=== PATIENT | female | born 1995 | race African-American/Black ===

== ENCOUNTER 2017-03-18 17:18 | Emergency (ER) | payer SELFPAY ==
[~2017-03-18] VITALS: Ht 167.6 cm; Wt 97.5 kg
[~2017-03-18 17:18] MED LIST: BENT20TA PO; ZOFR4TAB3 SL
[2017-03-18 17:20] VITALS: BP 129/60; PULSE 114; RESP 24; TEMP 100.2; O2SAT 98
[2017-03-18 18:00] VITALS: BP 114/65; PULSE 116; RESP 20; TEMP 99.7; O2SAT 100
[2017-03-18] MEDS ORDERED: SODIUM CHLOR 0.9% 1000 ML INJ 1,000 ML IV SCH (18:04)
[2017-03-18] MEDS ORDERED: MORPHINE SULFATE 4 MG/ML INJ IV PUSH ONE (18:15)
[2017-03-18] MEDS ORDERED: SODIUM CHLORIDE 0.9% FLUSH 10 ML FLUSH IV FLUSH PRN (18:15)
[2017-03-18] MEDS ORDERED: ONDANSETRON HCL 4 MG/2 ML VIAL IVP ONE (18:15)
--- NOTE | 2017-03-18 18:17 | PD ---
HPI . Vomiting Chief Complaint: Abdominal Pain Time Seen by Provider: 17:54 Travel History International Travel<30 days: No Contact w/Intl Traveler<30days: No Traveled to known affect area: No History of Present Illness HPI 22-year-old female presents complaining of vomiting and abdominal pain. Vomiting began this morning after waking up at 6 am and has continued throughout the day. Abdominal pain started this afternoon. Located in the middle of her abdomen all the way up to her chest and in the right lower quadrant. Reports that the pain is constant and worsening. Describes it as "someone is pinching me from the inside". She has had one bowel movement today which was hard and then liquid. Pain is worse with any movement. Better with sitting still. She also reports headache which she describes as "pounding", nausea, and feeling "hot and cold". 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 SCHOOL) PNEUMOCCOCAL Vaccine (Year): 2 ?: Not LMP: 03/02/17 : 0 Para: 0 Past Surgical History Other Surgery: No Social History Alcohol Use: No Tobacco Use: No Substance Use: No Allergies-Medications (Allergen,Severity, Reaction): Coded Allergies: No Known Allergies (Verified , 03/18/17) Reported Meds & Prescriptions Reported Meds & Active Scripts Active No Active Prescriptions or Reported Medications Review of Systems Except as stated in HPI: all other systems reviewed are Neg General / Constitutional: Positive: Chills HENT: Positive: Headaches Gastrointestinal: Positive: Nausea, Vomiting, Abdominal Pain, Changes in Bowel Habits, No: Hematemesis Genitourinary: No: Vaginal Bleeding Physical Exam Narrative GENERAL: awake and alert. Appears to be in distress, writhing around in the bed. SKIN: Warm and dry. HEAD: Atraumatic. Normocephalic. EYES: Pupils equal and round. ENT: No nasal bleeding or discharge. Mucous membranes pink and moist. NECK: Trachea midline. CARDIOVASCULAR: Regular rate and rhythm. RESPIRATORY: No accessory muscle use. GASTROINTESTINAL: Soft, tender to palpation and elicits urge to vomit. MUSCULOSKELETAL: No obvious deformities. No edema. NEUROLOGICAL: Awake and alert. No obvious cranial nerve deficits. Motor grossly within normal limits. Normal speech. PSYCHIATRIC: Appropriate mood and affect; insight and judgment normal. Data Data Last Documented VS Vital Signs Date Time Temp Pulse Resp B/P Pulse Ox O2 Delivery O2 Flow Rate FiO2 03/18/17 18:00 99.7 116 20 114/65 100 Room Air Orders Complete Blood Count With Diff (03/18/17 17:42) Comprehensive Metabolic Panel (03/18/17 17:42) Urinalysis - C+S If Indicated (03/18/17 17:42) Ed Urine Pregnancytest Poc (03/18/17 17:42) Lipase (03/18/17 17:42) Ct Abd/Pel W Iv Contrast(Rout) (03/18/17 18:04) Iv Access Insert/Monitor (03/18/17 18:04) Morphine Inj (Morphine Inj) (03/18/17 18:15) Ondansetron Inj (Zofran Inj) (03/18/17 18:15) Sodium Chlor 0.9% 1000 Ml Inj (Ns 1000 M (03/18/17 18:04) Sodium Chloride 0.9% Flush (Ns Flush) (03/18/17 18:15) Acetaminophen (Tylenol) (03/18/17 18:30) Iohexol 350 Inj (Omnipaque 350 Inj) (03/18/17 19:11) Sodium Chlor 0.9% 1000 Ml Inj (Ns 1000 M (03/18/17 20:00) Acetaminophen (Tylenol) (03/18/17 20:15) Labs Laboratory Tests Test 03/18/17 03/18/17 17:45 18:20 Urine Color YELLOW Urine Turbidity CLEAR Urine pH 7.5 Urine Specific [place] 1.023 Urine Protein TRACE mg/dL Urine Glucose (UA) NEG mg/dL Urine Ketones NEG mg/dL Urine Occult Blood NEG Urine Nitrite NEG Urine Bilirubin NEG Urine Urobilinogen 2.0 MG/DL Urine Leukocyte Esterase NEG Urine RBC 1 /hpf Urine WBC 5 /hpf Urine Squamous Epithelial 7 /hpf Cells Urine Bacteria FEW /hpf Urine Mucus FEW /lpf Microscopic Urinalysis Comment CULT NOT INDICATED White Blood Count 9.0 TH/MM3 Red Blood Count 5.51 MIL/MM3 Hemoglobin 14.3 GM/DL Hematocrit 45.0 % Mean Corpuscular Volume 81.8 FL Mean Corpuscular Hemoglobin 25.9 PG Mean Corpuscular Hemoglobin 31.7 % Concent Red Cell Distribution Width 14.1 % Platelet Count 317 TH/MM3 Mean Platelet Volume 8.2 FL Neutrophils (%) (Auto) 81.4 % Lymphocytes (%) (Auto) 9.3 % Monocytes (%) (Auto) 8.0 % Eosinophils (%) (Auto) 1.2 % Basophils (%) (Auto) 0.1 % Neutrophils # (Auto) 7.3 TH/MM3 Lymphocytes # (Auto) 0.8 TH/MM3 Monocytes # (Auto) 0.7 TH/MM3 Eosinophils # (Auto) 0.1 TH/MM3 Basophils # (Auto) 0.0 TH/MM3 CBC Comment DIFF FINAL Differential Comment Sodium Level 137 MEQ/L Potassium Level 4.0 MEQ/L Chloride Level 105 MEQ/L Carbon Dioxide Level 25.3 MEQ/L Anion Gap 7 MEQ/L Blood Urea Nitrogen 9 MG/DL Creatinine 0.74 MG/DL Estimat Glomerular Filtration 118 ML/MIN Rate Random Glucose 76 MG/DL Calcium Level 8.8 MG/DL Total Bilirubin 1.2 MG/DL Aspartate Amino Transf 30 U/L (AST/SGOT) Alanine Aminotransferase 27 U/L (ALT/SGPT) Alkaline Phosphatase 64 U/L Total Protein 8.2 GM/DL Albumin 4.0 GM/DL Lipase 143 U/L MDM Medical Decision Making Medical Screen Exam Complete: Yes Emergency Medical Condition: Yes Differential Diagnosis differential includes gastroenteritis, appendicitis, nephrolithiasis, ruptured ovarian cyst. Narrative Course Patient presented with the acute onset of nausea, vomiting and abdominal pain. She did have some tenderness to palpation on the right side. The patient was writhing so the likelihood of appendicitis is pretty low. CBC & BMP Diagram 03/18/17 18:20 UA is negative. Last Impressions Abdomen/Pelvis CT 03/18/171803 Signed Impressions: Service Date/Time: , March 18, 2017 19:10 - CONCLUSION: Negative CT abdomen/pelvis with contrast. Possible bilateral ovarian cysts. Delmer Jimenez MD This patient most likely has a viral illness. She will be discharged home. She 'll be given a prescription for Zofran. Diagnosis Primary Impression: Abdominal pain Qualified Code: R10.84 - Generalized abdominal pain Additional Impression: Vomiting Qualified Code: R11.2 - Non-intractable vomiting with nausea, unspecified vomiting type Patient Instructions: Abdominal Pain (ED), Acute Nausea and Vomiting (DC), General Instructions Med/Other Pt SpecificInfo: Prescription(s) given Scripts Ondansetron (Zofran)4 Mg Tab4 Mg PO Q6HR PRN (NAUSEA OR VOMITING) #6 TAB Ref 0 Prov:Katelin Galarza MD 03/18/17 Disposition: 01 DISCHARGE HOME Condition: Stable Katelin Galarza MD Mar 18, 2017 18:17
[2017-03-18] MEDS ORDERED: ACETAMINOPHEN 325 MG TAB PO ONE ×2 (18:30→20:15)
[2017-03-18 19:00] VITALS: BP 105/57; PULSE 68; RESP 14; TEMP 102.5; O2SAT 97
[2017-03-18 19:01] LABS: AUTOMATED NEUTROPHIL # 7.3 TH/MM3 (1.8-7.7); BASOPHIL % 0.1 % (0.0-2.0); EOSINOPHIL # 0.1 TH/MM3 (0-0.4); EOSINOPHIL % 1.2 % (0.0-4.0); HEMO FLAGS DIFF FINAL; LYMPH % 9.3 % (9.0-44.0); LYMPHOCYTE # 0.8 TH/MM3 (1.0-4.8); MEAN CELL VOLUME 81.8 FL (80.0-100.0); MEAN CORPUSCULAR HEMOGLOBIN 25.9 PG (27.0-34.0); MEAN CORPUSCULAR HGB CONC 31.7 % (32.0-36.0); NEUT % 81.4 % (16.0-70.0); PLATELET COUNT 317 TH/MM3 (150-450); RED BLOOD COUNT 5.51 MIL/MM3 (4.00-5.30); RED CELL DISTRIBUTION WIDTH 14.1 % (11.6-17.2)
[2017-03-18 19:02] LABS: BACTERIA, URINE FEW /hpf; BLOOD, URINE NEG (NEG); COMMENT (UR) CULT NOT INDICATED; CULTURE IF INDICATED CULT NOT INDICATED; GLUCOSE,URINE NEG (NEG); KETONE, URINE NEG (NEG); MUCUS URINE FEW /lpf (OCC); NITRITE,URINE NEG (NEG); PH, URINE 7.5 (5.0-8.5); SQUAMOUS EPITHELIAL CELL URINE 7 /hpf (0-5); URINE COLOR YELLOW (YELLW/STRAW)
[2017-03-18] MEDS ORDERED: IOHEXOL 350 MG/ML 10 ML VIAL (for RAD DIAG) IV ONE (19:11)
[2017-03-18 19:17] LABS: ALT (GPT) 27 U/L (10-53)
[2017-03-18 19:19] LABS: ALKALINE PHOSPHATASE 64 U/L (45-117); TOTAL BILIRUBIN ADULT 1.2 MG/DL (0.2-1.0)
[2017-03-18 19:24] LABS: ANION GAP 7 MEQ/L (5-15); AST (GOT) 30 U/L (15-37); BICARBONATE 25.3 MEQ/L (21.0-32.0); BLOOD UREA NITROGEN 9 MG/DL (7-18); CHLORIDE 105 MEQ/L (98-107); GLOMERULAR FILTRATION RATE 118 ML/MIN (>89); SODIUM (NA) 137 MEQ/L (136-145)
--- NOTE | 2017-03-18 19:59 | RADRPT ---
EXAM DATE/TIME: 03/18/2017 19:10 [facility] COMPARISON: No previous studies available for comparison. INDICATIONS : Diffuse abdomen pain with vomiting. IV CONTRAST: 95 cc Omnipaque 350 (iohexol) IV ORAL CONTRAST: No oral contrast ingested. RADIATION DOSE: 19.74 CTDIvol (mGy) MEDICAL HISTORY : Seizures. Asthma. SURGICAL HISTORY : None. ENCOUNTER: Initial ACUITY: 1 day PAIN SCALE: 2/10 LOCATION: Right lower quadrant TECHNIQUE: Volumetric scanning of the abdomen and pelvis was performed. Using automated exposure control and ad justment of the mA and/or kV according to patient size, radiation dose was kept as low as reasonably achievable to obtain optimal diagnostic quality images. DICOM format image data is available electro nically for review and comparison. FINDINGS: LOWER LUNGS: The visualized lower lungs are clear. LIVER: Homogeneous density without lesion. There is no dilation of the biliary tree. No calcified gallston es. SPLEEN: Normal size without lesion. PANCREAS: Within normal limits. KIDNEYS: Normal in size and shape. There is no mass, stone or hydronephrosis. ADRENAL GLANDS: Within normal limits. VASCULAR: There is no aortic aneurysm. BOWEL/MESENTERY: The stomach, small bowel, and colon demonstrate no acute abnormality. There is no free intraperitone al air or fluid. ABDOMINAL WALL: Within normal limits. RETROPERITONEUM: There is no lymphadenopathy. BLADDER: No wall thickening or mass. REPRODUCTIVE: No free fluid in the pelvis. The adnexal regions are mildly hypodense suggesting possible ovarian cy sts. Homogeneous enhancement in the uterus. INGUINAL: There is no lymphadenopathy or hernia. MUSCULOSKELETAL: Within normal limits for patient age. CONCLUSION: Negative CT abdomen/pelvis with contrast. Possible bilateral ovarian cysts. Delmer Jimenez MD on March 18, 2017 at 19:55 Board Certified Radiologist. This report was verified electronically.
[2017-03-18] MEDS ORDERED: SODIUM CHLOR 0.9% 1000 ML INJ 1,000 ML IV ONE (20:00)
[2017-03-18] MEDS ORDERED: ZOFR4TAB PO (20:42)
== END 2017-03-18 21:11 | disposition home or self-care (01) ==
LOC: NEPD 17:18
DX: R10.84 Generalized abdominal pain (principal); R11.2 Nausea with vomiting, unspecified; R51 Headache
CPT/HCPCS: 74177; 80053; 81001; 83690; 84703; 85025; 96374; 96375; 99285; J2270; J2405; J7030; Q9967

== ENCOUNTER 2017-03-31 13:29 | Emergency (ER) | payer SELFPAY ==
[~2017-03-31] VITALS: Ht 167.6 cm; Wt 109.0 kg
[~2017-03-31 13:29] MED LIST changes: -BENT20TA PO; +ZOFR4TAB PO; -ZOFR4TAB3 SL
[2017-03-31 13:31] VITALS: BP 123/73; PULSE 132; RESP 20; TEMP 101; O2SAT 99
[2017-03-31 13:48] VITALS: PULSE 128
--- NOTE | 2017-03-31 14:11 | PD ---
HPI Chief Complaint: Cold / Flu Symptoms Time Seen by Provider: 14:11 Travel History International Travel<30 days: No Contact w/Intl Traveler<30days: No Traveled to known affect area: No History of Present Illness HPI 22 YO F presents to the ED for evaluation of less than 24-hour history of fevers , sore throat, vomiting, nonproductive cough, malaise. Symptoms onset gradually this morning. Endorses difficulty swallowing her own secretions secondary to pain. Denies breathing difficulties, headache, dizziness, ear pain , sinus congestion, rhinorrhea, abdominal pain, dysuria. Patient treated with Tylenol at 9:45 AM. She denies sick contacts. She did not receive this years flu vaccination. NKDA. 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 SCHOOL) Tetanus Vaccination: > 5 Years PNEUMOCCOCAL Vaccine (Year): 2 ?: Not LMP: 02/25/17 : 0 Para: 0 Past Surgical History Surgical History: No Previous Surgery Other Surgery: No Social History Alcohol Use: No Tobacco Use: No Substance Use: No Allergies-Medications (Allergen,Severity, Reaction): Coded Allergies: No Known Allergies (Verified , 03/31/17) Reported Meds & Prescriptions Reported Meds & Active Scripts Active Magic Mouthwash Adult Liq (Multi-Ingredient Mouthwash/Gargle) 120 Ml Susp 10 Ml SWISH-SPIT ACHS Each 5mL contains: Nystatin 200,000units, Diphenhydramine 4.25mg, Viscous Lidocaine 10mg, Borges syrup 0.8 mL Penicillin V Potassium 500 Mg Tab 500 Mg PO BID 10 Days Review of Systems Except as stated in HPI: all other systems reviewed are Neg Physical Exam Narrative GENERAL: Well-nourished, well-developed ill-appearing black female in no acute distress. Tremulous. SKIN: Warm and dry. HEAD: Normocephalic. Atraumatic. EYES: No scleral icterus. No injection or drainage. PERRLA. EOMI. ENT: Pearly gordon tympanic membranes bilaterally. Nasal mucosa is moist. Oropharynx with 2+ tonsils bilaterally. Mild erythema. No visible exudate. Uvula midline. Airway patent. NECK: Supple, trachea midline. No JVD or lymphadenopathy. CARDIOVASCULAR: Regular rate and rhythm without murmurs, gallops, or rubs. RESPIRATORY: Breath sounds clear and equal bilaterally. No accessory muscle use. GASTROINTESTINAL: Abdomen soft, non-tender, nondistended. + Bowel sounds MUSCULOSKELETAL: No cyanosis, or edema. Patient's ambulatory with a normal gait. BACK: Nontender without obvious deformity. No CVA tenderness. Data Data Last Documented VS Vital Signs Date Time Temp Pulse Resp B/P Pulse Ox O2 Delivery O2 Flow Rate FiO2 03/31/17 16:17 100.1 126 03/31/17 15:33 133/78 98 Room Air 03/31/17 13:31 20 Orders Group A Rapid Strep Screen (03/31/17 14:17) Iv Access Insert/Monitor (03/31/17 14:17) Methylprednisolone So Succ Inj (Solumedr (03/31/17 14:30) Sodium Chloride 0.9% Flush (Ns Flush) (03/31/17 14:30) Sodium Chlor 0.9% 1000 Ml Inj (Ns 1000 M (03/31/17 14:30) Acetaminophen (Tylenol) (03/31/17 14:30) Influenzae A/B Antigen (03/31/17 14:17) Penicillin V Potassium (Veetids) (03/31/17 15:30) MDM Medical Decision Making Medical Screen Exam Complete: Yes Emergency Medical Condition: Yes Differential Diagnosis Pharyngitis versus strep pharyngitis versus influenza versus viral syndrome versus other Narrative Course 22-year-old female presents to the ED for the less than 24-hour history of sore throat, difficulty swallowing her secretions secondary to pain, fever, malaise, single episode of vomiting. Symptoms onset gradually since waking today. She denies sick contacts. On arrival the patient is tachycardic and febrile, ill- appearing. ENT exam reveals 2+ tonsils bilaterally with moderate erythema. Uvula midline. Airway patent. Chest clear to auscultation bilaterally. IV was established. Patient was administered Tylenol, 1 L normal saline bolus, IV methylprednisone. Rapid strep swab positive. This is acute streptococcal pharyngitis. Patient was prescribed penicillin VK 500 mg twice a day 10 days and Magic mouthwash. First dose antibiotic administered in the ED. On recheck the patient's temp is improved despite being under multiple blankets, grandmother arrives to care for her. The patient is instructed to rest, hydrate , take all medication as prescribed, limit exposure to vulnerable populations, return to the ED for worsening symptoms. She was provided with a note for work. She indicated understanding of instructions and is agreeable to the care plan. She is stable and discharged home. Diagnosis Primary Impression: Acute streptococcal pharyngitis Referrals: Primary Care Physician Patient Instructions: General Instructions, Strep Throat (ED) Departure Forms: Tests/Procedures, Work Release Enter return to work date: Apr 05, 2017 Additional Instructions: Rest, hydrate. Push fluids such as sports drinks, Pedialyte, popsicles, clear broth. Take antibiotics as prescribed, even if your symptoms resolved. Alternating Motrin and Tylenol every 4-6 hours as needed for continued fever. Increase handwashing frequently to avoid the spread to other family members and the community. Disinfect commonly touched surfaces such as light switches, microwaves, remote controls. Replace toothbrush at the end of this illness. Follow-up with the primary care provider this week. Return to the ED for any urgent or emergent medical condition. Med/Other Pt SpecificInfo: Prescription(s) given Scripts [id number] Liq (Magic Mouthwash Adult Liq)120 Ml Susp10 Ml SWISH-SPIT ACHS #120 ML Ref 0 Each 5mL contains: Nystatin 200,000units, Diphenhydramine 4.25mg, Viscous Lidocaine 10mg, Borges syrup 0.8 mL Prov:Jasbir Lakhani MD 03/31/17 Penicillin V Potassium 500 Mg [id number] Mg PO BID 10 Days Ref 0 Prov:Jasbir Lakhani MD 03/31/17 Disposition: 01 DISCHARGE HOME Condition: Stable Queta Wisdom Mar 31, 2017 14:11
[2017-03-31] MEDS ORDERED: methylPREDNISolone SOD SUCC 125 MG/2 ML VIAL IV ONE (14:30)
[2017-03-31] MEDS ORDERED: SODIUM CHLOR 0.9% 1000 ML INJ 1,000 ML IV ONE (14:30)
[2017-03-31] MEDS ORDERED: ACETAMINOPHEN 325 MG TAB PO ONE (14:30)
[2017-03-31] MEDS ORDERED: SODIUM CHLORIDE 0.9% FLUSH 10 ML FLUSH IVF PRN (14:30)
[2017-03-31] MEDS ORDERED: PENI500T PO (15:23)
[2017-03-31] MEDS ORDERED: MAGICADU2 SWISH-SPIT (15:28)
[2017-03-31] MEDS ORDERED: PENICILLIN V POTASSIUM 500 MG TAB PO ONE (15:30)
[2017-03-31 15:33] VITALS: BP 133/78; PULSE 124; O2SAT 98
[2017-03-31 16:17] VITALS: PULSE 126; TEMP 100.1
[2017-03-31 16:28] VITALS: TEMP 100.1
== END 2017-03-31 16:37 | disposition home or self-care (01) ==
LOC: NEPD 13:29
DX: J02.0 Streptococcal pharyngitis (principal); R53.81 Other malaise; F90.9 Attention-deficit hyperactivity disorder, unspecified type; J45.909 Unspecified asthma, uncomplicated; R56.9 Unspecified convulsions; Z79.899 Other long term (current) drug therapy
CPT/HCPCS: 87804; 87880; 96361; 96374; 99284; J2930; J7030

== ENCOUNTER 2017-05-27 19:45 | Emergency (ER) | payer SELFPAY ==
[~2017-05-27] VITALS: Ht 167.6 cm; Wt 110.0 kg
[~2017-05-27 19:45] MED LIST changes: +MAGICADU2 SWISH-SPIT; +PENI500T PO; -ZOFR4TAB PO
[2017-05-27 19:46] VITALS: BP 128/76; PULSE 75; RESP 18; TEMP 98.9; O2SAT 100
[2017-05-27] MEDS ORDERED: IOHEXOL 350 MG/ML 10 ML VIAL (for RAD DIAG) IVCONTRAST ONE (19:46)
[2017-05-27] MEDS ORDERED: SODIUM CHLOR 0.9% 1000 ML INJ 1,000 ML IV SCH (20:26)
[2017-05-27] MEDS ORDERED: SODIUM CHLORIDE 0.9% FLUSH 10 ML FLUSH IV FLUSH PRN (20:30)
[2017-05-27] MEDS ORDERED: ONDANSETRON HCL 4 MG/2 ML VIAL IVP ONE (20:30)
[2017-05-27] MEDS ORDERED: MORPHINE SULFATE 4 MG/ML INJ IV PUSH ONE (20:30)
--- NOTE | 2017-05-27 20:57 | PD ---
HPI Chief Complaint: Abdominal Pain Time Seen by Provider: 20:19 Travel History International Travel<30 days: No Contact w/Intl Traveler<30days: No Traveled to known affect area: No History of Present Illness HPI 22-year-old female here for evaluation of abdominal pain. The patient reports mid abdominal pain that has been sharp for the last 2 weeks, worse over the last couple of days. 2 days ago she reports vomiting. No history of abdominal surgeries. Pain is constant, moderate, worse with movement and palpation. No urinary symptoms. No abnormal vaginal discharge. LMP was April 04. She is sexually active with one partner and believe she is in a monogamous relationship. PFSH Past Medical History Medical History: Denies Significant Hx Hx Anticoagulant Therapy: No ADHD: Yes Asthma: Yes Autoimmune Disease: No Depression: Yes (denies) Cardiovascular Problems: No Chemotherapy: No Cerebrovascular Accident: No Developmental Delay: No Diabetes: No Diminished Hearing: No Gastrointestinal Disorders: No Genitourinary: No Musculoskeletal: No Neurologic: No Psychiatric: No Respiratory: Yes (ASTHMA) Immunizations Current: Yes Seizures: Yes (Had one seizure at age 17 ) Tetanus Vaccination: > 5 Years Influenza Vaccination: No PNEUMOCCOCAL Vaccine (Year): 2 ?: Not LMP: 04/04/17 : 0 Para: 0 Past Surgical History Surgical History: No Previous Surgery Other Surgery: No Social History Alcohol Use: Yes (rare) Tobacco Use: No Substance Use: No Allergies-Medications (Allergen,Severity, Reaction): Coded Allergies: No Known Allergies (Verified , 05/27/17) Reported Meds & Prescriptions Reported Meds & Active Scripts Active Magic Mouthwash Adult Liq (Multi-Ingredient Mouthwash/Gargle) 120 Ml Susp 10 Ml SWISH-SPIT ACHS Each 5mL contains: Nystatin 200,000units, Diphenhydramine 4.25mg, Viscous Lidocaine 10mg, Borges syrup 0.8 mL Penicillin V Potassium 500 Mg Tab 500 Mg PO BID 10 Days Review of Systems Except as stated in HPI: all other systems reviewed are Neg Physical Exam Narrative GENERAL: Well-developed, well-nourished, comfortable, no apparent distress. SKIN: Focused skin assessment warm/dry. HEAD: Atraumatic. Normocephalic. EYES: Pupils equal and round. No scleral icterus. No injection or drainage. ENT: Mucous membranes pink and moist. NECK: Trachea midline. No JVD. CARDIOVASCULAR: Regular rate and rhythm. RESPIRATORY: No accessory muscle use. Clear to auscultation. Breath sounds equal bilaterally. GASTROINTESTINAL: Abdomen soft, nondistended. Mild periumbilical tenderness without rebound or guarding. Rest of abdomen is soft and nontender. Normal bowel sounds. WIRELESS WATCHER: Exam performed in the presence of a female nurse. Normal external genitalia. Moderate amount of yellowish vaginal discharge coming from cervical os. Normal appearing cervix. Moderate uterine tenderness. No CMT. No adnexal masses or tenderness. MUSCULOSKELETAL: No obvious deformities. No clubbing. No cyanosis. No edema. NEUROLOGICAL: Awake and alert. No obvious cranial nerve deficits. Motor grossly within normal limits. Normal speech. PSYCHIATRIC: Appropriate mood and affect; insight and judgment normal. Data Data Last Documented VS Vital Signs Date Time Temp Pulse Resp B/P (MAP) Pulse Ox O2 Delivery O2 Flow Rate FiO2 05/27/17 22:05 14 99 Room Air 05/27/17 19:46 98.9 75 Orders Orders Complete Blood Count With Diff (05/27/17 20:26) Comprehensive Metabolic Panel (05/27/17 20:26) Lipase (05/27/17 20:26) Urinalysis - C+S If Indicated (05/27/17 20:26) Ct Abd/Pel W Iv Contrast(Rout) (05/27/17 20:26) Iv Access Insert/Monitor (05/27/17 20:26) Ecg Monitoring (05/27/17 20:26) Oximetry (05/27/17 20:26) Morphine Inj (Morphine Inj) (05/27/17 20:30) Ondansetron Inj (Zofran Inj) (05/27/17 20:30) Sodium Chlor 0.9% 1000 Ml Inj (Ns 1000 M (05/27/17 20:26) Sodium Chloride 0.9% Flush (Ns Flush) (05/27/17 20:30) Ed Urine Pregnancytest Poc (05/27/17 20:26) Gc And Chlamydia Pcr (05/27/17 20:26) Wet Prep Profile (05/27/17 20:26) Iohexol 350 Inj (Omnipaque 350 Inj) (05/27/17 19:46) Urine Culture (05/27/17 19:40) Ceftriaxone Inj (Rocephin Inj) (05/27/17 22:00) Azithromycin Powd Pack (Zithromax Powd P (05/27/17 22:15) Metronidazole (Flagyl) (05/28/17 07:00) Labs Laboratory Tests Test 05/27/17 19:40 05/27/17 21:50 05/27/17 22:00 Urine Color YELLOW Urine Turbidity HAZY Urine pH 5.5 Urine Specific [place] 1.035 Urine Protein 30 mg/dL Urine Glucose (UA) NEG mg/dL Urine Ketones NEG mg/dL Urine Occult Blood NEG Urine Nitrite NEG Urine Bilirubin NEG Urine Urobilinogen 2.0 MG/DL Urine Leukocyte Esterase NEG Urine RBC 1 /hpf Urine WBC 2 /hpf Urine Squamous Epithelial Cells 4 /hpf Urine Bacteria MOD /hpf Urine Mucus MOD /lpf Microscopic Urinalysis Comment CULTURE INDICATED White Blood Count 9.9 TH/MM3 Red Blood Count 5.20 MIL/MM3 Hemoglobin 14.1 GM/DL Hematocrit 43.6 % Mean Corpuscular Volume 83.8 FL Mean Corpuscular Hemoglobin 27.2 PG Mean Corpuscular Hemoglobin Concent 32.4 % Red Cell Distribution Width 14.3 % Platelet Count 286 TH/MM3 Mean Platelet Volume 8.1 FL Neutrophils (%) (Auto) 47.6 % Lymphocytes (%) (Auto) 36.6 % Monocytes (%) (Auto) 12.0 % Eosinophils (%) (Auto) 3.4 % Basophils (%) (Auto) 0.4 % Neutrophils # (Auto) 4.7 TH/MM3 Lymphocytes # (Auto) 3.6 TH/MM3 Monocytes # (Auto) 1.2 TH/MM3 Eosinophils # (Auto) 0.3 TH/MM3 Basophils # (Auto) 0.0 TH/MM3 CBC Comment DIFF FINAL Differential Comment Blood Urea Nitrogen 7 MG/DL Creatinine 0.70 MG/DL Random Glucose 62 MG/DL Total Protein 7.3 GM/DL Albumin 3.7 GM/DL Calcium Level 9.0 MG/DL Alkaline Phosphatase 61 U/L Aspartate Amino Transf (AST/SGOT) 17 U/L Alanine Aminotransferase (ALT/SGPT) 25 U/L Total Bilirubin 0.7 MG/DL Sodium Level 138 MEQ/L Potassium Level 3.6 MEQ/L Chloride Level 106 MEQ/L Carbon Dioxide Level 24.0 MEQ/L Anion Gap 8 MEQ/L Estimat Glomerular Filtration Rate 125 ML/MIN Lipase 187 U/L Clue Cells (Wet Prep) NONE SEEN Vaginal Trichomonas (Wet Prep) PRESENT Vaginal Yeast (Wet Prep) NONE SEEN Chlamydia trachomatis DNA (PCR) DETECTED Neisseria gonorrhoeae DNA (PCR) NOT DETECTED MDM Medical Decision Making Medical Screen Exam Complete: Yes Emergency Medical Condition: Yes Differential Diagnosis Gastritis, IBS, peptic ulcer disease, pancreatitis, hepatobiliary disease, appendicitis, UTI, cystitis, PID Narrative Course Patient empirically treated for gonorrhea and chlamydia. Zillow crashed during the patient's visit, and she was discharged with downtime charts. Wet prep positive for Trichimonas. She was given Flagyl 2g in the ED. CT A/P: No acute disease. CBC and CMP are unremarkable. Pt made aware of all findings. She was given rocephin, azithro, and Flagyl in the ED. She is stable for discharge home with PMD or WIRELESS WATCHER follow-up this week. She was informed on when to return to the ED. Diagnosis Primary Impression: PID (acute pelvic inflammatory disease) Additional Impression: Trichimoniasis Referrals: Regional Branch Manager 3 days Primary Care Physician 3 days Disposition: 01 DISCHARGE HOME Condition: Stable Rony Tomas MD May 27, 2017 20:57
[2017-05-27 21:13] LABS: BACTERIA, URINE MOD /hpf; BLOOD, URINE NEG (NEG); COMMENT (UR) CULTURE INDICATED; CULTURE IF INDICATED CULTURE INDICATED; GLUCOSE,URINE NEG (NEG); KETONE, URINE NEG (NEG); MUCUS URINE MOD /lpf (OCC); NITRITE,URINE NEG (NEG); PH, URINE 5.5 (5.0-8.5); SQUAMOUS EPITHELIAL CELL URINE 4 /hpf (0-5); URINE COLOR YELLOW (YELLW/STRAW)
--- NOTE | 2017-05-27 21:31 | RADRPT ---
EXAM DATE/TIME: 05/27/2017 21:03 [facility] COMPARISON: CT ABDOMEN & PELVIS W CONTRAST, March 18, 2017, 19:10. INDICATIONS : Abdomen pain for two weeks. IV CONTRAST: 99 cc Omnipaque 350 (iohexol) IV ORAL CONTRAST: No oral contrast ingested. RADIATION DOSE: 11.42 CTDIvol (mGy) MEDICAL HISTORY : Seizures. Asthma. SURGICAL HISTORY : None. ENCOUNTER: Initial ACUITY: 2 weeks PAIN SCALE: 5/10 LOCATION: Bilateral lower quadrant TECHNIQUE: Volumetric scanning of the abdomen and pelvis was performed. Using automated exposure control and ad justment of the mA and/or kV according to patient size, radiation dose was kept as low as reasonably achievable to obtain optimal diagnostic quality images. DICOM format image data is available electro nically for review and comparison. FINDINGS: LOWER LUNGS: The visualized lower lungs are clear. LIVER: Homogeneous density without lesion. There is no dilation of the biliary tree. No calcified gallston es. SPLEEN: Normal size without lesion. PANCREAS: Within normal limits. KIDNEYS: Normal in size and shape. There is no mass, stone or hydronephrosis. ADRENAL GLANDS: Within normal limits. VASCULAR: There is no aortic aneurysm. BOWEL/MESENTERY: The stomach, small bowel, and colon demonstrate no acute abnormality. There is no free intraperitone al air or fluid. ABDOMINAL WALL: Within normal limits. RETROPERITONEUM: There is no lymphadenopathy. BLADDER: No wall thickening or mass. REPRODUCTIVE: Within normal limits. INGUINAL: There is no lymphadenopathy or hernia. MUSCULOSKELETAL: Within normal limits for patient age. CONCLUSION: No acute abnormality. Ricki Reddy MD on May 27, 2017 at 21:29 Board Certified Radiologist. This report was verified electronically.
[2017-05-27] MEDS ORDERED: cefTRIAXone INJ 1,000 MG in SODIUM CHLORIDE 0.9% INJ 100 ML IV ONE (22:00)
[2017-05-27 22:05] VITALS: RESP 14; O2SAT 99
[2017-05-27 22:13] LABS: AUTOMATED NEUTROPHIL # 4.7 TH/MM3 (1.8-7.7); BASOPHIL % 0.4 % (0.0-2.0); EOSINOPHIL # 0.3 TH/MM3 (0-0.4); EOSINOPHIL % 3.4 % (0.0-4.0); HEMATOCRIT 43.6 % (35.0-46.0); HEMO FLAGS DIFF FINAL; LYMPH % 36.6 % (9.0-44.0); LYMPHOCYTE # 3.6 TH/MM3 (1.0-4.8); MEAN CELL VOLUME 83.8 FL (80.0-100.0); MEAN CORPUSCULAR HEMOGLOBIN 27.2 PG (27.0-34.0); MEAN CORPUSCULAR HGB CONC 32.4 % (32.0-36.0); NEUT % 47.6 % (16.0-70.0); PLATELET COUNT 286 TH/MM3 (150-450); RED CELL DISTRIBUTION WIDTH 14.3 % (11.6-17.2); WHITE BLOOD COUNT 9.9 TH/MM3 (4.0-11.0)
[2017-05-27] MEDS ORDERED: AZITHROMYCIN PWD FOR SUSP 1 GM PACKET PO ONE (22:15)
[2017-05-28 03:34] LABS: ALKALINE PHOSPHATASE 61 U/L (45-117); ALT (GPT) 25 U/L (10-53); ANION GAP 8 MEQ/L (5-15); AST (GOT) 17 U/L (15-37); BLOOD UREA NITROGEN 7 MG/DL (7-18); CHLORIDE 106 MEQ/L (98-107); GLOMERULAR FILTRATION RATE 125 ML/MIN (>89); POTASSIUM 3.6 MEQ/L (3.5-5.1); SODIUM (NA) 138 MEQ/L (136-145); TOTAL BILIRUBIN ADULT 0.7 MG/DL (0.2-1.0)
[2017-05-28 03:34] LABS: CHLAMYDIA PCR DETECTED (NOT DETECT); NEISSERIA PCR NOT DETECTED (NOT DETECT)
[2017-05-28] MEDS ORDERED: metroNIDAZOLE 500 MG TAB PO ONE (07:00)
== END 2017-05-28 03:56 | disposition home or self-care (01) ==
LOC: NEPD 19:45
DX: N73.9 Female pelvic inflammatory disease, unspecified (principal); A59.9 Trichomoniasis, unspecified; J45.909 Unspecified asthma, uncomplicated
CPT/HCPCS: 74177; 80053; 81001; 83690; 84703; 85025; 87086; 87210; 87491; 87591; 96365; 96375; 99285; J0696; J2405; J7030; Q9967

== ENCOUNTER 2017-08-06 09:06 | Emergency (ER) | payer SELFPAY ==
[~2017-08-06] VITALS: Ht 167.6 cm; Wt 120.0 kg
[2017-08-06 09:08] VITALS: BP 130/75; PULSE 71; RESP 16; TEMP 98.1; O2SAT 99
[2017-08-06] MEDS ORDERED: ONDANSETRON ODT 4 MG TAB PO ONE (09:30)
[2017-08-06] MEDS ORDERED: ZOFR4TAB PO (10:21)
--- NOTE | 2017-08-06 10:21 | PD ---
HPI . Vomiting and diarrhea Chief Complaint: GI Complaint Time Seen by Provider: 09:29 Travel History International Travel<30 days: No Contact w/Intl Traveler<30days: No Traveled to known affect area: No History of Present Illness HPI This patient presents with chief complaint of vomiting and diarrhea. Onset was yesterday. She reports to numerous to count episodes of emesis and diarrhea. She states that her symptoms are about the same now as they were at the onset. It is associated with subjective fever. She denies any urinary tract symptoms. She denies any gynecological symptoms. She has had no known sick contacts. [facility] Past Medical History Medical History: Denies Significant Hx Hx Anticoagulant Therapy: No ADHD: Yes Asthma: Yes Autoimmune Disease: No Depression: Yes (denies) Cardiovascular Problems: No Chemotherapy: No Cerebrovascular Accident: No Developmental Delay: No Diabetes: No Diminished Hearing: No Gastrointestinal Disorders: No Genitourinary: No Musculoskeletal: No Neurologic: No Psychiatric: No Respiratory: Yes (ASTHMA) Immunizations Current: Yes Seizures: Yes (Had one seizure at age 17 ) PNEUMOCCOCAL Vaccine (Year): 2 ?: Not LMP: 08/04/17 : 0 Para: 0 Past Surgical History Other Surgery: No Social History Alcohol Use: Yes (rare) Tobacco Use: No Substance Use: No Allergies-Medications (Allergen,Severity, Reaction): Coded Allergies: No Known Allergies (Verified , 05/27/17) Reported Meds & Prescriptions Reported Meds & Active Scripts Active Zofran (Ondansetron HCl) 4 Mg Tab 4 Mg PO Q6HR PRN Review of Systems Except as stated in HPI: all other systems reviewed are Neg General / Constitutional: Positive: Fever Gastrointestinal: Positive: Nausea, Vomiting, Diarrhea, No: Abdominal Pain Genitourinary: No: Urgency, Frequency, Dysuria, Discharge, Vaginal Bleeding Physical Exam Narrative GENERAL: This patient is awake and alert and does not appear to be in any acute distress. SKIN: warm/dry. Normal color and turgor. HEAD: Normocephalic. Atraumatic. EYES: Pupils equal and round. No scleral icterus. No injection or drainage. ENT: No nasal bleeding or discharge. Mucous membranes pink and moist. NECK: Trachea midline. Full range of motion without pain.. CARDIOVASCULAR: Regular rate and rhythm. She is not tachycardic. RESPIRATORY: No accessory muscle use. Clear to auscultation. Breath sounds equal bilaterally. GASTROINTESTINAL: Abdomen soft. Nontender. Bowel sounds present. Nondistended. MUSCULOSKELETAL: No obvious deformities. NEUROLOGICAL: Awake and alert. No obvious cranial nerve deficits. Motor grossly within normal limits. Normal speech. PSYCHIATRIC: Appropriate mood and affect; insight and judgment normal. Data Data Last Documented VS Vital Signs Date Time Temp Pulse Resp B/P (MAP) Pulse Ox O2 Delivery O2 Flow Rate FiO2 08/06/17 09:08 98.1 71 16 130/75 (93) 99 Orders Orders Urinalysis - C+S If Indicated (08/06/17 09:29) Ed Urine Pregnancytest Poc (08/06/17 09:29) Ondansetron Odt (Zofran Odt) (08/06/17 09:30) Labs Laboratory Tests Test 08/06/17 09:50 Urine Color YELLOW Urine Turbidity HAZY Urine pH 6.5 Urine Specific [place] 1.024 Urine Protein NEG mg/dL Urine Glucose (UA) NEG mg/dL Urine Ketones NEG mg/dL Urine Occult Blood LARGE Urine Nitrite NEG Urine Bilirubin NEG Urine Urobilinogen LESS THAN 2.0 MG/DL Urine Leukocyte Esterase NEG Urine RBC 2 /hpf Urine WBC 1 /hpf Urine Squamous Epithelial Cells 5 /hpf Urine Mucus FEW /lpf Microscopic Urinalysis Comment CULT NOT INDICATED MDM Medical Decision Making Medical Screen Exam Complete: Yes Emergency Medical Condition: Yes Differential Diagnosis Differential diagnosis includes but is not limited to viral gastritis, food poisoning, pancreatitis, pneumonia, hepatitis, acute coronary syndrome, Narrative Course This patient presents with the acute onset of vomiting and diarrhea. She does not appear dehydrated. She has been treated with Zofran ODT. I have ordered a UA and urine test. UA>>blood but no infection. She'll be discharged home with a prescription for Zofran. Diagnosis Primary Impression: Gastroenteritis Patient Instructions: Gastroenteritis (DC), General Instructions Med/Other Pt SpecificInfo: Prescription(s) given Scripts Ondansetron (Zofran) 4 Mg Tab 4 MG PO Q6HR Y for NAUSEA OR VOMITING, #6 TAB 0 Refills Prov: Katelin Galarza MD 08/06/17 Disposition: 01 DISCHARGE HOME Condition: Stable Katelin Galarza MD Aug 06, 2017 10:21
[2017-08-06 10:35] LABS: BLOOD, URINE LARGE (NEG); COMMENT (UR) CULT NOT INDICATED; CULTURE IF INDICATED CULT NOT INDICATED; GLUCOSE,URINE NEG (NEG); KETONE, URINE NEG (NEG); MUCUS URINE FEW /lpf (OCC); NITRITE,URINE NEG (NEG); PH, URINE 6.5 (5.0-8.5); SQUAMOUS EPITHELIAL CELL URINE 5 /hpf (0-5); URINE COLOR YELLOW (YELLW/STRAW)
== END 2017-08-06 11:10 | disposition home or self-care (01) ==
LOC: NEPD 09:06
DX: K52.9 Noninfective gastroenteritis and colitis, unspecified (principal); F90.9 Attention-deficit hyperactivity disorder, unspecified type; J45.909 Unspecified asthma, uncomplicated; R56.9 Unspecified convulsions
CPT/HCPCS: 81001; 84703; 99283

== ENCOUNTER 2017-10-02 10:35 | Emergency (ER) | payer SELFPAY ==
[~2017-10-02 10:35] MED LIST changes: -MAGICADU2 SWISH-SPIT; -PENI500T PO; +ZOFR4TAB PO
[2017-10-02 10:36] VITALS: BP 118/55; PULSE 82; RESP 22; TEMP 98.5; O2SAT 97
[2017-10-02] MEDS ORDERED: ONDANSETRON HCL 4 MG/2 ML VIAL IVP ONE (11:45)
[2017-10-02] MEDS ORDERED: SODIUM CHLORIDE 0.9% FLUSH 10 ML FLUSH IV FLUSH PRN (11:45)
[2017-10-02] MEDS ORDERED: FAMOTIDINE 20 MG/2 ML VIAL IV PUSH ONE (11:45)
[2017-10-02] MEDS ORDERED: SODIUM CHLOR 0.9% 1000 ML INJ 1,000 ML IV SCH (11:45)
[2017-10-02 12:17] LABS: AUTOMATED NEUTROPHIL # 3.4 TH/MM3 (1.8-7.7); BACTERIA, URINE RARE /hpf; BASOPHIL % 0.5 % (0.0-2.0); BILIRUBIN, URINE NEG (NEG); BLOOD, URINE NEG (NEG); EOSINOPHIL # 0.3 TH/MM3 (0-0.4); GLUCOSE,URINE NEG (NEG); KETONE, URINE NEG (NEG); LYMPH % 34.2 % (9.0-44.0); LYMPHOCYTE # 2.4 TH/MM3 (1.0-4.8); MEAN CELL VOLUME 83.1 FL (80.0-100.0); MEAN CORPUSCULAR HEMOGLOBIN 26.4 PG (27.0-34.0); MEAN CORPUSCULAR HGB CONC 31.8 % (32.0-36.0); MEAN PLATELET VOLUME 8.2 FL (7.0-11.0); MONO % 12.7 % (0.0-8.0); MONOCYTE # 0.9 TH/MM3 (0-0.9); NEUT % 48.6 % (16.0-70.0); NITRITE,URINE NEG (NEG); PH, URINE 7.5 (5.0-8.5); PLATELET COUNT 322 TH/MM3 (150-450); RED BLOOD COUNT 5.29 MIL/MM3 (4.00-5.30); RED CELL DISTRIBUTION WIDTH 14.3 % (11.6-17.2); SQUAMOUS EPITHELIAL CELL URINE 6 /hpf (0-5); URINE COLOR YELLOW (YELLW/STRAW); URINE LEUKOCYTE ESTERASE NEG (NEG); WHITE BLOOD COUNT 7.1 TH/MM3 (4.0-11.0)
[2017-10-02 12:32] LABS: ALKALINE PHOSPHATASE 56 U/L (45-117); ALT (GPT) 26 U/L (10-53); TOTAL BILIRUBIN ADULT 0.4 MG/DL (0.2-1.0); TOTAL PROTEIN 7.5 GM/DL (6.4-8.2)
[2017-10-02 12:34] LABS: ALBUMIN 3.7 GM/DL (3.4-5.0); AST (GOT) 23 U/L (15-37); BICARBONATE 26.4 MEQ/L (21.0-32.0); BLOOD UREA NITROGEN 8 MG/DL (7-18); CALCIUM 8.8 MG/DL (8.5-10.1); CHLORIDE 103 MEQ/L (98-107); CREATININE 0.63 MG/DL (0.50-1.00); GLOMERULAR FILTRATION RATE 142 ML/MIN (>89); GLUCOSE,RANDOM 75 MG/DL (74-106); SODIUM (NA) 137 MEQ/L (136-145)
--- NOTE | 2017-10-02 13:17 | PD ---
HPI Chief Complaint: GI Complaint Time Seen by Provider: 11:32 Travel History International Travel<30 days: No Contact w/Intl Traveler<30days: No Traveled to known affect area: No History of Present Illness HPI Patient is a 22 year old female who comes in complaining of nausea and vomiting and diarrhea. She says it started after eating sushi last night. She says friends with her have the same symptoms. She denies abdominal pain. She denies fever or chills. She says she was feeling fine prior to eating the sushi. She says she is unable to keep anything down. Nothing seems to make her symptoms better or worse. PFSH Past Medical History Hx Anticoagulant Therapy: No ADHD: Yes Asthma: Yes Autoimmune Disease: No Depression: Yes (denies) Cardiovascular Problems: No Chemotherapy: No Cerebrovascular Accident: No Developmental Delay: No Diabetes: No Diminished Hearing: No Gastrointestinal Disorders: No Genitourinary: No Musculoskeletal: No Neurologic: No Psychiatric: No Respiratory: Yes (ASTHMA) Immunizations Current: Yes Seizures: Yes (Had one seizure at age 17 ) PNEUMOCCOCAL Vaccine (Year): 2 ?: Not : 0 Para: 0 Past Surgical History Other Surgery: No Social History Alcohol Use: Yes (rare) Tobacco Use: No Substance Use: No Allergies-Medications (Allergen,Severity, Reaction): Coded Allergies: No Known Allergies (Verified , 05/27/17) Reported Meds & Prescriptions Reported Meds & Active Scripts Active Zofran (Ondansetron HCl) 4 Mg Tab 4 Mg PO Q6HR PRN Review of Systems Except as stated in HPI: all other systems reviewed are Neg General / Constitutional: No: Fever, Chills HENT: No: Headaches, Lightheadedness Cardiovascular: No: Chest Pain or Discomfort Respiratory: No: Shortness of Breath Gastrointestinal: Positive: Nausea, Vomiting, Diarrhea, No: Abdominal Pain Genitourinary: No: Dysuria Musculoskeletal: No: Myalgias, Edema Skin: No Rash, No Change in Pigmentation Neurologic: No: Weakness, Dizziness Physical Exam Narrative GENERAL: Awake and alert, in no acute distress. SKIN: Focused skin assessment warm/dry. No wounds or signs of infection. HEAD: Atraumatic. Normocephalic. EYES: Pupils equal and round. No scleral icterus. ENT: Mucous membranes pink and moist. NECK: Trachea midline. No JVD. CARDIOVASCULAR: Regular rate and rhythm. No murmur appreciated. RESPIRATORY: No accessory muscle use. Clear to auscultation. Breath sounds equal bilaterally. GASTROINTESTINAL: Abdomen soft, non-tender, nondistended. MUSCULOSKELETAL: No obvious deformities. No clubbing. No cyanosis. No edema. NEUROLOGICAL: Awake and alert. No obvious cranial nerve deficits. Motor grossly within normal limits. Normal speech. PSYCHIATRIC: Appropriate mood and affect; insight and judgment normal. Data Data Last Documented VS Vital Signs Date Time Temp Pulse Resp B/P (MAP) Pulse Ox O2 Delivery O2 Flow Rate FiO2 10/02/17 12:05 18 10/02/17 10:36 98.5 82 118/55 (76) 97 Orders Orders Complete Blood Count With Diff (10/02/17 11:45) Comprehensive Metabolic Panel (10/02/17 11:45) Urinalysis - C+S If Indicated (10/02/17 11:45) Ondansetron Inj (Zofran Inj) (10/02/17 11:45) Sodium Chlor 0.9% 1000 Ml Inj (Ns 1000 M (10/02/17 11:45) Sodium Chloride 0.9% Flush (Ns Flush) (10/02/17 11:45) Famotidine Inj (Pepcid Inj) (10/02/17 11:45) Ed Urine Pregnancytest Poc (10/02/17 11:45) Labs Laboratory Tests Test 10/02/17 11:45 White Blood Count 7.1 TH/MM3 Red Blood Count 5.29 MIL/MM3 Hemoglobin 14.0 GM/DL Hematocrit 44.0 % Mean Corpuscular Volume 83.1 FL Mean Corpuscular Hemoglobin 26.4 PG Mean Corpuscular Hemoglobin Concent 31.8 % Red Cell Distribution Width 14.3 % Platelet Count 322 TH/MM3 Mean Platelet Volume 8.2 FL Neutrophils (%) (Auto) 48.6 % Lymphocytes (%) (Auto) 34.2 % Monocytes (%) (Auto) 12.7 % Eosinophils (%) (Auto) 4.0 % Basophils (%) (Auto) 0.5 % Neutrophils # (Auto) 3.4 TH/MM3 Lymphocytes # (Auto) 2.4 TH/MM3 Monocytes # (Auto) 0.9 TH/MM3 Eosinophils # (Auto) 0.3 TH/MM3 Basophils # (Auto) 0.0 TH/MM3 CBC Comment DIFF FINAL Differential Comment Urine Color YELLOW Urine Turbidity CLEAR Urine pH 7.5 Urine Specific [place] 1.019 Urine Protein NEG mg/dL Urine Glucose (UA) NEG mg/dL Urine Ketones NEG mg/dL Urine Occult Blood NEG Urine Nitrite NEG Urine Bilirubin NEG Urine Urobilinogen LESS THAN 2.0 MG/DL Urine Leukocyte Esterase NEG Urine RBC LESS THAN 1 /hpf Urine WBC LESS THAN 1 /hpf Urine Squamous Epithelial Cells 6 /hpf Urine Bacteria RARE /hpf Microscopic Urinalysis Comment CULT NOT INDICATED Blood Urea Nitrogen 8 MG/DL Creatinine 0.63 MG/DL Random Glucose 75 MG/DL Total Protein 7.5 GM/DL Albumin 3.7 GM/DL Calcium Level 8.8 MG/DL Alkaline Phosphatase 56 U/L Aspartate Amino Transf (AST/SGOT) 23 U/L Alanine Aminotransferase (ALT/SGPT) 26 U/L Total Bilirubin 0.4 MG/DL Sodium Level 137 MEQ/L Potassium Level 4.2 MEQ/L Chloride Level 103 MEQ/L Carbon Dioxide Level 26.4 MEQ/L Anion Gap 8 MEQ/L Estimat Glomerular Filtration Rate 142 ML/MIN [facility] Medical Decision Making Medical Screen Exam Complete: Yes Emergency Medical Condition: Yes Medical Record Reviewed: Yes Differential Diagnosis Gastroenteritis versus dehydration versus gastritis versus electrolyte abnormality Narrative Course Patient is a 22-year-old female who comes in complaining of nausea, vomiting, diarrhea. Exam shows abdomen to be soft and nontender. IV established, labs sent. Labs show no acute abnormalities. Patient given IV fluids and Zofran. She reports feeling better. She is able to drink water without vomiting. She'll be discharged with a prescription for Zofran. Advised to drink plenty of fluids. Advised to eat a bland diet. Advised to return to the ED as needed for any worsening symptoms. Diagnosis Primary Impression: Gastroenteritis Patient Instructions: Acute Nausea and Vomiting (ED), General Instructions Additional Instructions: Drink plenty of fluids. Eat a bland diet if you're feeling hungry. Take Zofran as needed for nausea. Return to the ED as needed for any worsening symptoms. Scripts Ondansetron Odt (Zofran Odt) 4 Mg Tab 4 MG SL Q6HR Y for Nausea/Vomiting, #12 TAB 0 Refills Prov: Yadira Jasmine MD 10/02/17 Disposition: 01 DISCHARGE HOME Condition: Stable Yadira Jasmine MD Oct 02, 2017 13:17
[2017-10-02] MEDS ORDERED: ZOFR4TAB3 SL (13:29)
== END 2017-10-02 13:45 | disposition home or self-care (01) ==
LOC: NEPE 10:35
DX: K52.9 Noninfective gastroenteritis and colitis, unspecified (principal); J45.909 Unspecified asthma, uncomplicated; F90.9 Attention-deficit hyperactivity disorder, unspecified type
CPT/HCPCS: 80053; 81001; 84703; 85025; 96374; 96375; 99284; J2405; J7030

== ENCOUNTER 2017-10-28 18:10 | Emergency (ER) | payer SELFPAY ==
[~2017-10-28] VITALS: Ht 165.1 cm; Wt 91.5 kg
[~2017-10-28 18:10] MED LIST changes: +ZOFR4TAB3 SL
[2017-10-28 18:12] VITALS: BP 129/84; PULSE 97; RESP 18; TEMP 99.8; O2SAT 100
[2017-10-28] MEDS ORDERED: AMOX875T PO (19:30)
[2017-10-28] MEDS ORDERED: MAGICADU2 SWISH-SPIT (19:30)
--- NOTE | 2017-10-28 19:36 | PD ---
HPI Chief Complaint: Cold / Flu Symptoms Time Seen by Provider: 19:28 Travel History International Travel<30 days: No Contact w/Intl Traveler<30days: No Traveled to known affect area: No History of Present Illness HPI 22-year-old female presents for evaluation. For today she's had sore throat, chills, myalgias, fatigue. Symptoms are moderate, aggravated by swallowing with no alleviating factors. Denies cough, congestion, rash, recent travel, dysuria, flank pain, abdominal pain, nausea, vomiting, diarrhea, constipation. No sick contacts. No other complaints at this time. PFSH Past Medical History Hx Anticoagulant Therapy: No ADHD: Yes Asthma: Yes Autoimmune Disease: No Depression: Yes (denies) Cardiovascular Problems: No Chemotherapy: No Cerebrovascular Accident: No Developmental Delay: No Diabetes: No Diminished Hearing: No Gastrointestinal Disorders: No Genitourinary: No Musculoskeletal: No Neurologic: No Psychiatric: No Respiratory: Yes (ASTHMA) Immunizations Current: Yes Seizures: Yes (Had one seizure at age 17 ) Tetanus Vaccination: < 5 Years Influenza Vaccination: No PNEUMOCCOCAL Vaccine (Year): 2 ?: Not LMP: 10/04/17 : 0 Para: 0 Past Surgical History Surgical History: No Previous Surgery Other Surgery: No Social History Alcohol Use: Yes (rare) Tobacco Use: No Substance Use: No Allergies-Medications (Allergen,Severity, Reaction): Coded Allergies: No Known Allergies (Verified , 05/27/17) Reported Meds & Prescriptions Reported Meds & Active Scripts Active Magic Mouthwash Adult Liq (Multi-Ingredient Mouthwash/Gargle) 120 Ml Susp 10 Ml SWISH-SPIT ACHS Each 5mL contains: Nystatin 200,000units, Diphenhydramine 4.25mg, Viscous Lidocaine 10mg, Borges syrup 0.8 mL Amoxicillin 875 Mg Tab 875 Mg PO BID 10 Days Zofran Odt (Ondansetron Odt) 4 Mg Tab 4 Mg SL Q6HR PRN Zofran (Ondansetron HCl) 4 Mg Tab 4 Mg PO Q6HR PRN Review of Systems Except as stated in HPI: all other systems reviewed are Neg Physical Exam Narrative GENERAL: Well-developed well-nourished female in no acute distress SKIN: Warm and dry. HEAD: Atraumatic. Normocephalic. EYES: Pupils equal and round. No scleral icterus. No injection or drainage. ENT: No nasal bleeding or discharge. Mucous membranes pink and moist. Oropharyngeal erythema and exudate present. NECK: Trachea midline. No JVD. Tender anterior cervical lymphadenopathy is present. CARDIOVASCULAR: Regular rate and rhythm. No murmur appreciated. RESPIRATORY: No accessory muscle use. Clear to auscultation. Breath sounds equal bilaterally. GASTROINTESTINAL: Abdomen soft, non-tender, nondistended. Hepatic and splenic margins not palpable. Data Data Last Documented VS Vital Signs Date Time Temp Pulse Resp B/P (MAP) Pulse Ox O2 Delivery O2 Flow Rate FiO2 10/28/17 18:12 99.8 97 18 129/84 (99) 100 Orders Orders Ed Discharge Order (10/28/17 19:33) MDM Medical Decision Making Medical Screen Exam Complete: Yes Emergency Medical Condition: Yes Medical Record Reviewed: Yes Differential Diagnosis Exudative pharyngitis, tonsillitis, peritonsillar abscess, infectious mononucleosis, herpangina Narrative Course 22-year-old female sore throat, chills, myalgias for 2 days. On examination she has exudate pharyngitis, tender anterior cervical lymphadenopathy, Centor score 4/4, treat presumptively for streptococcal pharyngitis with amoxicillin. Discussed the diagnosis, discussed that infectious mononucleosis could have a similar appearance however mono screen has a poor sensitivity early on in the duration of the illness. Therefore for symptoms persist recommended outpatient follow-up with a primary care physician and return for any acutely new or worsening symptoms. Diagnosis Primary Impression: Exudative pharyngitis Departure Forms: Tests/Procedures, Work Release Enter return to work date: Nov 01, 2017 Additional Instructions: Medication as prescribed. Tylenol or Motrin for pain and fever. Stay well- hydrated and well-nourished. Follow-up with primary care physician as needed. Return for any acutely new or worsening symptoms. Med/Other Pt SpecificInfo: Prescription(s) given Scripts Bxtylqtt-Jiintykpfjhdaim-Cgovowcya Liq (Magic Mouthwash Adult Liq) 120 Ml Susp 10 ML SWISH-SPIT ACHS for Mouth sores, #120 ML 0 Refills Each 5mL contains: Nystatin 200,000units, Diphenhydramine 4.25mg, Viscous Lidocaine 10mg, Borges syrup 0.8 mL Prov: Amarjit Smith MD 10/28/17 Amoxicillin (Amoxicillin) 875 Mg Tab 875 MG PO BID for Infection for 10 Days, #20 TAB 0 Refills Prov: Amarjit Smith MD 10/28/17 Disposition: 01 DISCHARGE HOME Condition: Stable Du Dawkins Oct 28, 2017 19:36
== END 2017-10-28 19:43 | disposition home or self-care (01) ==
LOC: NEPK 18:10
DX: J02.9 Acute pharyngitis, unspecified (principal); F90.9 Attention-deficit hyperactivity disorder, unspecified type; J45.909 Unspecified asthma, uncomplicated
CPT/HCPCS: 99283

== ENCOUNTER 2017-11-22 14:14 | Emergency (ER) | payer SELFPAY ==
[~2017-11-22] VITALS: Ht 167.6 cm; Wt 106.8 kg
[~2017-11-22 14:14] MED LIST changes: +AMOX875T PO; +MAGICADU2 SWISH-SPIT
[2017-11-22 14:34] VITALS: BP 123/69; PULSE 82; RESP 18; TEMP 98.2; O2SAT 100
--- NOTE | 2017-11-22 15:35 | RADRPT ---
EXAM DATE/TIME: 11/22/2017 15:20 [place] COMPARISON: CT BRAIN W/O CONTRAST, July 16, 2011, 14:13. INDICATIONS : Headache for four days. RADIATION DOSE: 37.76 CTDIvol (mGy) MEDICAL HISTORY : Seizures. SURGICAL HISTORY : None. ENCOUNTER: Initial ACUITY: 4 - 6 days PAIN SCALE: 8/10 LOCATION: cranial TECHNIQUE: Multiple contiguous axial images were obtained of the head. Using automated exposure control and adj ustment of the mA and/or kV according to patient size, radiation dose was kept as low as reasonably a chievable to obtain optimal diagnostic quality images. DICOM format image data is available electro nically for review and comparison. FINDINGS: CEREBRUM: The ventricles are normal for age. No evidence of midline shift, mass lesion, hemorrhage or acute in farction. No extra-axial fluid collections are seen. POSTERIOR FOSSA: The cerebellum and brainstem are intact. The 4th ventricle is midline. The cerebellopontine angle i s unremarkable. EXTRACRANIAL: The visualized portion of the orbits is intact. SKULL: The calvaria is intact. No evidence of skull fracture. CONCLUSION: No acute disease. Jasbir Morales MD on November 22, 2017 at 15:32 Board Certified Radiologist. This report was verified electronically.
[2017-11-22] MEDS ORDERED: SODIUM CHLOR 0.9% 1000 ML INJ 1,000 ML IV SCH (17:24)
--- NOTE | 2017-11-22 17:29 | PD ---
HPI Chief Complaint: Headache Time Seen by Provider: 17:24 Travel History International Travel<30 days: No Contact w/Intl Traveler<30days: No Traveled to known affect area: No History of Present Illness HPI 22-year-old female here complaining of headaches. Patient reports intermittent headaches for the last 4 days. She complains of pressure in the front and the back of her head, currently 7 out of 10. She has taken Tylenol, ibuprofen, and [id number] migraine medication with only minimal improvement. She thinks she has a fever. She also noticed a nosebleed last night. She has had a few episodes of vomiting. She states she cannot be . Onset gradual. PFSH Past Medical History Hx Anticoagulant Therapy: No ADHD: Yes Asthma: Yes Autoimmune Disease: No Depression: Yes (denies) Cardiovascular Problems: No Chemotherapy: No Cerebrovascular Accident: No Developmental Delay: No Diabetes: No Diminished Hearing: No Gastrointestinal Disorders: No Genitourinary: No Musculoskeletal: No Neurologic: No Psychiatric: No Respiratory: Yes (ASTHMA) Immunizations Current: Yes Seizures: Yes (Had one seizure at age 17 ) PNEUMOCCOCAL Vaccine (Year): 2 ?: Not LMP: last week : 0 Para: 0 Past Surgical History Other Surgery: No Social History Alcohol Use: Yes (rare) Tobacco Use: No Substance Use: No Allergies-Medications (Allergen,Severity, Reaction): Coded Allergies: No Known Allergies (Verified , 05/27/17) Reported Meds & Prescriptions Reported Meds & Active Scripts Active Magic Mouthwash Adult Liq (Multi-Ingredient Mouthwash/Gargle) 120 Ml Susp 10 Ml SWISH-SPIT ACHS Each 5mL contains: Nystatin 200,000units, Diphenhydramine 4.25mg, Viscous Lidocaine 10mg, Borges syrup 0.8 mL Amoxicillin 875 Mg Tab 875 Mg PO BID 10 Days Zofran Odt (Ondansetron Odt) 4 Mg Tab 4 Mg SL Q6HR PRN Zofran (Ondansetron HCl) 4 Mg Tab 4 Mg PO Q6HR PRN Review of Systems Except as stated in HPI: all other systems reviewed are Neg Physical Exam Narrative GENERAL: Well-developed, well-nourished, comfortable, no apparent distress. SKIN: Focused skin assessment warm/dry. HEAD: Atraumatic. Normocephalic. EYES: Pupils equal, round, 3 mm, reactive to light. No scleral icterus. No injection or drainage. ENT: No nasal bleeding or discharge. Mucous membranes pink and moist. Normal pharynx. NECK: Trachea midline. No JVD. No nuchal rigidity. CARDIOVASCULAR: Regular rate and rhythm. RESPIRATORY: No accessory muscle use. Clear to auscultation. Breath sounds equal bilaterally. GASTROINTESTINAL: Abdomen soft, non-tender, nondistended. MUSCULOSKELETAL: No obvious deformities. No clubbing. No cyanosis. No edema. NEUROLOGICAL: Awake and alert. No obvious cranial nerve deficits. Motor grossly within normal limits. Normal speech. PSYCHIATRIC: Appropriate mood and affect; insight and judgment normal. Data Data Last Documented VS Vital Signs Date Time Temp Pulse Resp B/P (MAP) Pulse Ox O2 Delivery O2 Flow Rate FiO2 11/22/17 18:20 99.4 80 18 115/75 (88) 100 Room Air Orders Orders Ed Urine Pregnancytest Poc (11/22/17 14:36) Ct Brain W/O Iv Contrast(Rout) (11/22/17 ) Beta Hcg (Quant/Titer) (11/22/17 17:24) Complete Blood Count With Diff (11/22/17 17:24) Comprehensive Metabolic Panel (11/22/17 17:24) Iv Access Insert/Monitor (11/22/17 17:24) Ecg Monitoring (11/22/17 17:24) Oximetry (11/22/17 17:24) Sodium Chlor 0.9% 1000 Ml Inj (Ns 1000 M (11/22/17 17:24) Sodium Chloride 0.9% Flush (Ns Flush) (11/22/17 17:30) Metoclopramide Inj (Reglan Inj) (11/22/17 17:30) Ketorolac Inj (Toradol Inj) (11/22/17 17:30) Labs Laboratory Tests Test 11/22/17 17:50 White Blood Count 8.2 TH/MM3 Red Blood Count 5.21 MIL/MM3 Hemoglobin 13.8 GM/DL Hematocrit 43.0 % Mean Corpuscular Volume 82.6 FL Mean Corpuscular Hemoglobin 26.6 PG Mean Corpuscular Hemoglobin Concent 32.2 % Red Cell Distribution Width 13.8 % Platelet Count 338 TH/MM3 Mean Platelet Volume 7.6 FL Neutrophils (%) (Auto) 48.9 % Lymphocytes (%) (Auto) 35.3 % Monocytes (%) (Auto) 12.4 % Eosinophils (%) (Auto) 2.9 % Basophils (%) (Auto) 0.5 % Neutrophils # (Auto) 4.0 TH/MM3 Lymphocytes # (Auto) 2.9 TH/MM3 Monocytes # (Auto) 1.0 TH/MM3 Eosinophils # (Auto) 0.2 TH/MM3 Basophils # (Auto) 0.0 TH/MM3 CBC Comment DIFF FINAL Differential Comment Blood Urea Nitrogen 9 MG/DL Creatinine 0.97 MG/DL Random Glucose 74 MG/DL Total Protein 8.4 GM/DL Albumin 3.9 GM/DL Calcium Level 9.3 MG/DL Alkaline Phosphatase 63 U/L Aspartate Amino Transf (AST/SGOT) 23 U/L Alanine Aminotransferase (ALT/SGPT) 28 U/L Total Bilirubin 0.4 MG/DL Sodium Level 139 MEQ/L Potassium Level 4.1 MEQ/L Chloride Level 105 MEQ/L Carbon Dioxide Level 27.7 MEQ/L Anion Gap 6 MEQ/L Estimat Glomerular Filtration Rate 86 ML/MIN Human Chorionic Gonadotropin, Quant LESS THAN 1 MIU/ML MDM Medical Decision Making Medical Screen Exam Complete: Yes Emergency Medical Condition: Yes Differential Diagnosis Tension headache, cluster headache, migraine headache, SAH/meningitis/ encephalitis unlikely Narrative Course Vital signs reviewed. CBC is essentially unremarkable. CMP is unremarkable. Beta hCG is negative. CT head shows no acute intracranial abnormality. Patient was given a liter of normal saline IV, IV Reglan, and IV Toradol and on reassessment she is sleeping comfortably. She states she feels significantly improved. She is stable for discharge home with outpatient follow-up with a primary care physician this week. She would like a note to take off of work tonight. She was advised on when to return to the emergency department. She verbalizes understanding and agreement with plan. Diagnosis Primary Impression: Headache Qualified Codes: R51 - Headache Referrals: Primary Care Physician 3 days Additional Instructions: Follow-up with a primary care physician this week. Return to the emergency department for worsening symptoms or any other concerns. Disposition: 01 DISCHARGE HOME Condition: Stable Rony Tomas MD Nov 22, 2017 17:29
[2017-11-22] MEDS ORDERED: KETOROLAC TROMETHAMINE 30 MG/ML (IVP) VIAL IV PUSH ONE (17:30)
[2017-11-22] MEDS ORDERED: METOCLOPRAMIDE HCL 10 MG/2 ML VIAL IV PUSH ONE (17:30)
[2017-11-22] MEDS ORDERED: SODIUM CHLORIDE 0.9% FLUSH 10 ML FLUSH IV FLUSH PRN (17:30)
[2017-11-22 18:13] VITALS: O2SAT 99
[2017-11-22 18:17] LABS: BASOPHIL % 0.5 % (0.0-2.0); EOSINOPHIL # 0.2 TH/MM3 (0-0.4); EOSINOPHIL % 2.9 % (0.0-4.0); HEMOGLOBIN 13.8 GM/DL (11.6-15.3); LYMPH % 35.3 % (9.0-44.0); LYMPHOCYTE # 2.9 TH/MM3 (1.0-4.8); MEAN CELL VOLUME 82.6 FL (80.0-100.0); MEAN CORPUSCULAR HEMOGLOBIN 26.6 PG (27.0-34.0); MEAN CORPUSCULAR HGB CONC 32.2 % (32.0-36.0); MEAN PLATELET VOLUME 7.6 FL (7.0-11.0); MONO % 12.4 % (0.0-8.0); NEUT % 48.9 % (16.0-70.0); PLATELET COUNT 338 TH/MM3 (150-450); RED BLOOD COUNT 5.21 MIL/MM3 (4.00-5.30); RED CELL DISTRIBUTION WIDTH 13.8 % (11.6-17.2); WHITE BLOOD COUNT 8.2 TH/MM3 (4.0-11.0)
[2017-11-22 18:20] VITALS: BP 115/75; PULSE 80; RESP 18; TEMP 99.4; O2SAT 100
[2017-11-22 18:39] LABS: ALT (GPT) 28 U/L (10-53)
[2017-11-22 18:43] LABS: ALKALINE PHOSPHATASE 63 U/L (45-117); TOTAL BILIRUBIN ADULT 0.4 MG/DL (0.2-1.0); TOTAL PROTEIN 8.4 GM/DL (6.4-8.2)
[2017-11-22 18:49] LABS: ALBUMIN 3.9 GM/DL (3.4-5.0); AST (GOT) 23 U/L (15-37); BICARBONATE 27.7 MEQ/L (21.0-32.0); BLOOD UREA NITROGEN 9 MG/DL (7-18); CALCIUM 9.3 MG/DL (8.5-10.1); CHLORIDE 105 MEQ/L (98-107); CREATININE 0.97 MG/DL (0.50-1.00); GLOMERULAR FILTRATION RATE 86 ML/MIN (>89); GLUCOSE,RANDOM 74 MG/DL (74-106); SODIUM (NA) 139 MEQ/L (136-145)
[2017-11-22 19:29] VITALS: BP 113/64
== END 2017-11-22 19:32 | disposition home or self-care (01) ==
LOC: NEPD 14:14
DX: R51 Headache (principal); F90.9 Attention-deficit hyperactivity disorder, unspecified type; J45.909 Unspecified asthma, uncomplicated
CPT/HCPCS: 70450; 80053; 84702; 84703; 85025; 96361; 96374; 96375; 99284; J1885; J2765; J7030